=== PATIENT | female | born 1975 | race Caucasian/White ===

== ENCOUNTER → 2018-07-11 | Outpatient (CLI) | payer BC | LOC: M RAD 07:35 | DX: R10.11 Right upper quadrant pain (principal) | CPT/HCPCS: 76705 ==

== ENCOUNTER → 2019-05-16 | Outpatient (CLI) | payer BC ==
[~2019-05-16] MED LIST: E-Z-GAS II EFFERVESCENT PACKET (SODIUM BICARB./CITRIC ACID/SIMETHICONE) As Ordered ONE; E-Z-HD 98% w/w 340GM SUSP BTL As Ordered ONE; E-Z-PAQUE 96% w/w SUSP 176GM BTL As Ordered ONE
--- NOTE | 2019-05-17 07:58 | REP ---
UPPER GI AIR CONTRAST AND SMALL BOWEL FOLLOW THROUGH The procedure was performed under the direct supervision of Dr. Wolff. The images were reviewed with Dr. Wolff The checkering machine operator film shows no organomegaly or pathological masses. The intestinal gas pattern is non-specific. There is an IUD in the mid pelvis. Liquid barium and gas producing crystals were given in the erect position as well as liquid barium in the prone oblique position in order to perform a double contrast upper GI examination. Additionally liquid barium was given at the end of the examination in order to perform a small bowel follow through. The oral and pharyngeal stages of deglutition are unremarkable. Esophageal transport is prompt and efficient and there is no esophagitis, stricture, mucosal ring or hiatal hernia. There is gastroesophageal reflux demonstrated to the level of the thoracic inlet. Within the stomach there are prominent areae gastricae throughout the stomach as well as small aphthous ulcers. The duodenal goins are normally outlined . The mucosal folds are smooth and regular. There is no duodenitis pancreatitis peptic ulcer disease or neoplasm. The visualized portion of the proximal small bowel appears normal in course and caliber. The barium column was followed through the small bowel to the level of the terminal ileum. Small bowel transit time is approximately 90 minutes . During fluoroscopy gentle palpation shows all loops are freely movable and pliable. There are no fixed or angulated loops. The small bowel mucosal pattern is normal in course and caliber. There is no transition to suggest a partial small-bowel obstruction. Spot filming of the terminal ileum shows luminal narrowing without significant mucosal irregularity or nodularity. Suggest follow-up in 6 months. Impression: 1. There is gastroesophageal reflux demonstrated to the level of the thoracic inlet. 2. Within the stomach and there are prominent areae gastricae a as well as small aphthous ulcers. 3. The terminal ileum shows luminal narrowing without significant mucosal irregularity or nodularity. Suggest follow-up in 6 months. 2.2 minutes of fluoro time was utilized for this procedure. Electronically Signed by KATIE Estrada 05/16/2019 05:02 P Electronically Signed by Ashwin Wolff MD 05/17/2019 07:50 A
== END ==
LOC: M RAD 10:21
DX: R10.9 Unspecified abdominal pain (principal); K21.9 Gastro-esophageal reflux disease without esophagitis; K28.9 Gastrojejunal ulcer, unspecified as acute or chronic, without hemorrhage or perforation

== ENCOUNTER → 2024-02-01 | Outpatient (CLI) | payer BC ==
[~2024-02-01] MED LIST changes: +CEFU1TAB22 PO; -E-Z-GAS II EFFERVESCENT PACKET (SODIUM BICARB./CITRIC ACID/SIMETHICONE) As Ordered ONE; -E-Z-HD 98% w/w 340GM SUSP BTL As Ordered ONE; -E-Z-PAQUE 96% w/w SUSP 176GM BTL As Ordered ONE; +EUTH125T PO; +PHEN-239 PO; +PLAQ200T4 PO; +[UNRECOGNIZED DRUG - CODE] PO
== END ==
LOC: M RAD 08:10
PROVIDERS: ATTEND Internal Medicine Gastroenterology
DX: R10.11 Right upper quadrant pain (principal); R14.0 Abdominal distension (gaseous); K59.00 Constipation, unspecified; Z15.89 Genetic susceptibility to other disease; K62.5 Hemorrhage of anus and rectum; K44.9 Diaphragmatic hernia without obstruction or gangrene; K21.9 Gastro-esophageal reflux disease without esophagitis
CPT/HCPCS: 78227; A9537